=== PATIENT | female | born 1940 | race African-American/Black ===

== ENCOUNTER → 2016-07-09 | Outpatient (CLI) | payer MEDICARE, OTHER ==
[~2016-07-09] MED LIST: CIPROFLOXACIN500 M1; DETROL LA PO; MULTI-DAY1 TAB PO; VICODIN; VIT C PO; VIT E PO; VITAL-D RX TABL1 TAB PO; ZANTAC PO
--- NOTE | ~2016-07-09 | US85 ---
[facility] A Service of [facility] RADIOLOGY TEXT RESULTS PATIENT: PHYLLIS FORRESTER LOCATION: CNIV : 44 UNIT #: [id number] AGE: [address]: Ángel Garcia MD SEX: F ORDER DR: [id number] [facility] [address] [place], [place] [address] [id number] O MR#: [id number] Acc #: [id number] NAME: PHYLLIS FORRESTER : 1940 SEX: F STUDY DATE/TIME: 07/09/2016 16:00 UNIT: [facility] ROOM: STUDY DESCRIPTION: [facility] [employer] [facility] Attending Physician: Ángel Garcia M.D. Referring Physician: Ángel Garcia M.D. Ordering Physician: Ángel Garcia M.D. Primary Care Physician: Jacobo Milton M.D. MEDICAL IMAGING REPORT This report is preliminary unless electronic signature is present EXAM Left lower extremity venous ultrasound HISTORY Left lower extremity pain for 1 week. TECHNIQUE Venous ultrasound examination of the left lower extremity was performed using grayscale, spectral Doppler and color flow Doppler imaging. FINDINGS The examination is negative. There is no evidence of left lower extremity deep venous thrombus from the groin to the lower calf. Visualized greater saphenous vein is also patent. IMPRESSION Negative examination. No evidence of left lower extremity deep venous thrombosis. Dictated by... Zi Noble M.D. THIS IS AN ELECTRONICALLY VERIFIED REPORT Zi Noble M.D. at 07/09/2016 10:30 PM REYES/laina TD: 07/09/2016 19:44 JOB #: [id number] MEDICAL IMAGING REPORT Page 1 of 1 COPY
== END | disposition home or self-care (01) ==
LOC: CNIV 15:31
DX: M79.662 Pain in left lower leg (principal)
CPT/HCPCS: 93971